=== PATIENT | male | born 2000 | race Two or more races ===

== ENCOUNTER 2024-02-08 11:30 | Emergency (ER) | payer OTHER ==
--- NOTE | 2024-02-08 12:18 | ED Physician Documentation ---
History of Present Illness - Stated complaint Stated Complaint: ALLERGIC REACTION - Chief complaint Chief Complaint: Allergic Rx - History obtained from History obtained from: Patient, EMS - History of Present Illness Timing: Today Pain level max: 0 Pain level now: 0 - Additonal information Additional information: Patient is a 23-year-old male who presents to the emergency department stating that he woke up this morning with a rash to his face and neck. He states that he ate seafood last night. No known seafood allergy. Was given epinephrine and 50 mg of Benadryl by EMS at approximately 945 this morning. He states that he is currently feeling better but still has a rash. No difficulty speaking or sw allowing. Review of Systems Constitutional: denies: Fever Respiratory: denies: Cough, Wheezing GI: denies: Abdominal Pain, Vomiting PD PAST MEDICAL HISTORY - Past Medical History Past Medical History: No - Past Surgical History Past Surgical History: No - Present Medications Home Medications: Ambulatory Orders Medication Instructions Recorded Confirmed EPINEPHrine [Epinephrine] 0.3 mg IJ ONCE PRN #1 each 02/08/24 predniSONE [Deltasone] 40 mg PO DAILY #10 tablet 02/08/24 - Allergies Allergies/Adverse Reactions: Allergies Allergy/AdvReac Type Severity Reaction Status Date / Time No Known Drug Allergies Allergy Verified 02/08/24 11:36 - Social History Does the pt smoke?: No Smoking Status: Never smoker PD ED PE NORMAL - Vitals Vital signs reviewed: Yes - General General: Alert and oriented X 3, No acute distress - HEENT HEENT: PERRL, Moist mucous membranes, Pharynx benign - Neck Neck: Supple, no meningeal sign - Cardiac Cardiac: RRR - Respiratory Respiratory: No respiratory distress, Clear bilaterally, Other (no stridor or wheezing) - Abdomen Abdomen: Soft, Non tender, Non distended - Derm Derm: Warm and dry, Other (urticarial rash to face and neck. blanches easily.) - Neuro Neuro: Alert and oriented X 3 - Psych Psych: Normal mood, Normal affect Results - Vitals Vitals: Vital Signs - 24 hr 02/08/24 02/08/24 11:37 13:46 Temperature 36.6 C 36.3 C L Heart Rate 71 58 L Respiratory 16 20 Rate Blood Pressure 143/90 H 150/72 H O2 Saturation 97 100 Oxygen O2 Source Room air PD Medical Decision Making - ED course Complexity details: re-evaluated patient, considered differential, d/w patient ED course: Patient with what appears to be an allergic reaction. He had received epinephrine and Benadryl prior to arrival. He received prednisone in the emergency department. He was observed in the emergency department no further progression of his symptoms are recurrence of any sort of throat swelling. Normal phonation. No trismus. No wheezing. No strider. We will place on steroids for home. We will prescribe an epinephrine pen as well. We will have him start a Zyrtec, Claritin or Benadryl. We will have him follow up with his primary care provider for further care. He will abstain from Seafood. Patient counseled regarding signs and symptoms for which I believe an urgent re-evaluation would be necessary. Patient with good understanding of and agreement to plan and is comfortable going home at this time. This document was made in part using voice recognition software. While efforts are made to proofread this document, sound alike and grammatical errors may occur. Departure - Departure Disposition: 01 Home, Self Care Clinical Impression: Allergic reaction Qualifiers: Encounter type: initial encounter Qualified Code(s): T78.40XA - Allergy, unspecified, initial encounter Condition: Good Instructions: ED Allergic Reaction General Other Follow-Up: your,doctor in 3 days [Other] Prescriptions: predniSONE [Deltasone] 40 mg PO DAILY #10 tablet EPINEPHrine [Epinephrine] 0.3 mg IJ ONCE PRN #1 each PRN Reason: Anaphylaxis Comments: We have prescribed prednisone for you. Please take this for the next 5 days. You can also take Zyrtec, Claritin or Benadryl. We have also prescribed you an epinephrine pen, if you use the epinephrine pen, you need to be seen right away in the emergency department as the effects of the epinephrine pen only lasted for about 30 minutes. Please avoid any more seafood or shellfish. Your prescription was sent to the [facility]. Forms: PCP List, Activity restrictions Discharge Date/Time: 02/08/24 13:46
[2024-02-08] MEDS: predniSONE 20 MG TABLET PO STA (12:25)
[2024-02-08 13:51] VITALS: BP 150/72; O2SAT 100
== END 2024-02-08 13:46 | disposition home or self-care (01) ==
LOC: ED 11:30
DX: T78.40XA Allergy, unspecified, initial encounter (principal); X58.XXXA Exposure to other specified factors, initial encounter
CPT/HCPCS: 99283; J7512